=== PATIENT | female | born 1975 | race Caucasian/White ===

== ENCOUNTER 2022-03-24 07:11 | Outpatient (CLI) | payer OTHER | END 2022-03-24 07:12 | disposition home or self-care (01) | LOC: NUCLEAR 07:11 | PROVIDERS: ATTEND Internal Medicine | DX: I10 Essential (primary) hypertension (principal); R00.0 Tachycardia, unspecified; R06.00 Dyspnea, unspecified | CPT/HCPCS: 78452; 93017; A9500; J0150 ==

== ENCOUNTER 2024-07-15 08:57 | Inpatient (IN) | payer OTHER ==
[~2024-07-15] VITALS: Ht 157.5 cm; Wt 129.7 kg
[2024-07-15 08:42] VITALS: BP 136/85
[~2024-07-15 08:57] MED LIST: BISOPROLOL-HCT1 EACH PO; CYMBALTA30 MG PO; FIORICET; LYRICA150 MG PO; PROTONIX40 MG PO; VITAMIN D-40010 MCG
[2024-07-15 09:27] LABS: PH,URINE 5.5 (5.0-8.0); URINE APPEARANCE Clear; URINE BILIRRUBIN Negative (NEGATIVE); URINE BLOOD Negative; URINE COLOR Yellow; URINE GLUCOSE Negative (NEGATIVE); URINE KETONE Negative (NEGATIVE); URINE LEUKOCYTE Negative; URINE NITRATE Negative; URINE PROTEIN Negative (NEGATIVE); URINE UROBILINOGEN 0.2 E.U./dl
[2024-07-15 09:31] LABS: URINE BACTERIA 910.5 uL (0.0-1933); URINE EPITHELIAL CELLS 34.1 uL (0.0-38.8); URINE RBC 20.7 uL (0.0-20.8)
[2024-07-15 09:39] LABS: HEMATOCRIT 44.5 % (36.0-45.00); HEMOGLOBIN 14.5 g/dL (12.0-15.00); MEAN CELL VOLUME 89.8 fL (80.00-100.00); MEAN CORPUSCULAR HEMOGLOBIN 29.4 pg (27.00-32.0); MEAN CORPUSCULAR HGB CONC 32.7 g/dl (32.0-36.0); PLATELET COUNT 292 K/uL (150-450); RED BLOOD COUNT 4.95 M/uL (4.00-6.00); RED CELL DISTRIBUTION WIDTH 14.2 % (11.5-14.5)
[2024-07-15 10:20] LABS: INR 0.96; PARTIAL THROMBOPLASTIN TIME 27.4 SECONDS (22.0-34.0); PROTHROMBIN TIME 10.5 SECONDS (9.0-11.5)
[2024-07-15 10:30] LABS: BILIRUBIN TOTAL 0.43 mg/dL (0.3-1.2); CALCIUM 9.8 mg/dL (8.5-10.1); CREATININE SERUM 0.62 mg/dL (0.55-1.02); GFR 103.18; GLOBULINA 3.8 G/DL (2.4-3.5); POTASSIUM 4.43 mEq/L (3.5-5.1); TOTAL PROTEIN 7.8 gm/dL (6.4-8.2)
[2024-08-01] MEDS ORDERED: FLONASE16 GM (08:17)
[2024-08-01] MEDS ORDERED: FAMOTIDINE40 MG (08:17)
[2024-08-01] MEDS ORDERED: BUTALB-ACETAMI1 EAC2 (08:18)
[2024-08-01] MEDS ORDERED: DULOXETINE HCL60 MG (08:18)
[2024-08-01] MEDS ORDERED: CYCLOBENZAPRINE10 MG (08:18)
[2024-08-01] MEDS ORDERED: DULOXETINE HCL30 MG (08:19)
[2024-08-01] MEDS ORDERED: PREGABALIN150 MG (08:19)
[2024-08-01] MEDS ORDERED: BISOPROLOL-HCT1 EACH (08:21)
[2024-08-01] MEDS ORDERED: AYR SALINE50 M2 (08:21)
[2024-08-01] MEDS ORDERED: PANTOPRAZOLE SO40 MG (08:22)
[2024-08-01] MEDS ORDERED: VITAMIN D31250 MCG (08:22)
[2024-08-01] MEDS ORDERED: DEXAMETHASONE SODIUM PHOSP/PF 10 MG/ML VIAL IV ONE (09:00)
[2024-08-01] MEDS ORDERED: ENALAPRILAT DIHYDRATE 1.25 MG/ML VIAL IV PRN (10:15)
[2024-08-01] MEDS ORDERED: ONDANSETRON HCL 2 MG/ML VIAL IV PRN (10:15)
[2024-08-01] MEDS ORDERED: MORPHINE SULFATE 4 MG/ML VIAL IV ONE ×2 (10:55→12:00)
[2024-08-01 12:45] VITALS: BP 144/79; O2SAT 95
[2024-08-01] MEDS ORDERED: ACETAMINOPHEN 500 MG GEL..CAP PO SCH (17:00)
[2024-08-01] MEDS ORDERED: CYCLOBENZAPRINE HCL 5 MG TABLET PO SCH (17:00)
[2024-08-01] MEDS ORDERED: TRAMADOL HCL 50 MG TABLET PO SCH (17:00)
[2024-08-01 17:31] VITALS: BP 124/66; O2SAT 95
[2024-08-01] MEDS ORDERED: Calcium Carbonate 1 TAB TABLET PO SCH (21:00)
[2024-08-01] MEDS ORDERED: PANTOPRAZOLE SODIUM 40 MG/VIAL VIAL IV PUSH SCH (21:00)
[2024-08-02 01:07] VITALS: BP 106/59; O2SAT 97
[2024-08-02] MEDS ORDERED: LEVOTHYROXINE SODIUM 175 MCG TABLET PO SCH (06:00)
[2024-08-02 08:00] VITALS: BP 100/61; O2SAT 97
[2024-08-02] MEDS ORDERED: HYDROCHLOROTHIAZIDE 12.5 MG CAPSULE PO SCH (09:00)
== END 2024-08-02 12:39 | disposition home or self-care (01) | DRG 627 ==
LOC: O/R 08-01 05:10 → SURH 08-01 05:10
PROVIDERS: ADMIT Surgery; ATTEND Surgery
PROC: 0GTK0ZZ Resection of Thyroid Gland, Open Approach (ICD-10-PCS; principal; 2024-08-01 17:45)
DX: E06.3 Autoimmune thyroiditis (principal); E04.2 Nontoxic multinodular goiter